=== PATIENT | male | born 1945 | race Caucasian/White ===

== ENCOUNTER → 2016-07-08 | Outpatient (CLI) | payer OTHER, BC | LOC: BHFA 09:30 | PROVIDERS: ATTEND Internal Medicine Cardiovascular Disease | DX: I25.10 Atherosclerotic heart disease of native coronary artery without angina pectoris (principal); R06.02 Shortness of breath | CPT/HCPCS: 78452; 93017; A9500; J2785 ==

== ENCOUNTER 2016-07-09 07:58 | Observation (INO) | payer OTHER, BC ==
--- NOTE | 2016-07-09 08:13 | CPEKG ---
Heart Rate: 102 RR Interval: 588 P-R Interval: 144 QRSD Interval: 86 QT Interval: 340 QTC Interval: 443 P [place]: 70 QRS [place]: 62 EKG Severity - OTHERWISE NORMAL ECG - EKG Impression: SINUS TACHYCARDIA EKG Impression: NON SPECIFIC ST/T WAVE CHANGES NOTED Electronically Signed By: Igor Trevino 12-Jul-2016 10:26:37
--- NOTE | 2016-07-09 08:18 | EDPHY ---
H & P Smoking Status: Former smoker Time Seen by Provider: 07/09/16 08:07 HPI/ROS: CHIEF COMPLAINT: Dyspnea, abnormal stress test HISTORY OF PRESENT ILLNESS: 70-year-old male presents to the emergency department with his by private vehicle complaining of on going dyspnea for last several months. The patient states that he has been short of breath since he broke 3 ribs from an accident a year ago. He states that he had a workup for this including most recently had a stress test yesterday with Dr. Warner Castellano and was told that this was abnormal. He presents today to the emergency department for catheterization. Patient denies pleuritic pain. He denies pain or swelling in his calves. He recently traveled to [place] in return 3 weeks ago. He is short of breath especially with activity. REVIEW OF SYSTEMS: Constitutional: No fever, no chills. Eyes: No double or blurry vision. ENT: No sore throat. Respiratory: Shortness of breath as above. No cough. Cardiac: No chest pain. Gastrointestinal: No abdominal pain, vomiting or diarrhea. Genitourinary: No dysuria. Musculoskeletal: No neck or back pain. Skin: No rashes. Neurological: No headache. (Beckie Pressley) Past Medical/Surgical History: Hypertension (Beckie Pressley) Social History: (Beckie Pressley) Physical Exam: General Appearance: Alert, no distress. 173/95, 90% on room air, heart rate 102 , afebrile. Eyes: Pupils equal and round. Extraocular motions are all intact. ENT: Mouth: Mucous membranes moist. Respiratory: No wheezing, rhonchi, or rales, lungs are clear to auscultation. Cardiovascular: Regular rate and rhythm. Gastrointestinal: Abdomen is soft and nontender, no masses, no rebound or guarding, bowel sounds normal. Neurological: Alert and oriented x 3, cranial nerves II through XII grossly intact Skin: Warm and dry, no rashes. Musculoskeletal: Nontender to palpate along the cervical, thoracic or lumbar spine. Neck is supple. Extremities: Full range of motion and no peripheral edema. Psychiatric: Patient is oriented X 3, there is no agitation. (Beckie Pressley) Constitutional: Initial Vital Signs Temperature (C) 37.1 C 07/09/16 07:59 Heart Rate 102 H 07/09/16 07:59 Respiratory Rate 18 07/09/16 07:59 Blood Pressure 173/95 H 07/09/16 07:59 O2 Sat (%) 90 L 07/09/16 07:59 O2 Delivery Mode Nasal Cannula O2 (L/minute) 2 Allergies/Adverse Reactions: No Known Allergies Allergy (Unverified 07/09/16 08:11) Home Medications: Medication Instructions Recorded Albuterol [Proventil Inhaler HFA 1 - 2 puffs IH Q4H PRN 07/09/16 (*)] Budesonide/Formoterol 160/4.5 2 puffs IH BID 07/09/16 [Symbicort 160-4.5 Mcg Inh (*)] Losartan Potassium [Cozaar] 100 mg PO DAILY 07/09/16 Simvastatin [Zocor] 40 mg PO DAILY 07/09/16 Medical Decision Making - Diagnostics EKG Interpretation: 12 lead EKG is interpreted in Trace master View by emergency department physician. It shows a sinus tachycardia with a rate of 102. (Patricia Briceno) Imaging: Patient declined chest x-ray since he had recent chest CT 2-3 weeks ago. (Beckie Pressley) ED Course/Re-evaluation: 70-year-old male presents to the emergency department for catheterization. The patient had abnormal stress test yesterday. Patient has no pain in his chest currently. Dr. Patricia Briceno has talked with the patient's boiler control technician, Dr. Warner Castellano. The patient will be sent to the sleep lab technician. (Beckie Pressley) Differential Diagnosis: Shortness of breath including but not limited to pulmonary infectious process, COPD, asthma, pulmonary embolus and congestive heart failure. (Beckie Pressley) Other Provider: I have evaluated and participated in the management of this patient. My co- signature indicates that I have reviewed this chart and that I agree with the findings and the plan of care as documented. 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 He is not currently experiencing chest pain. He is not short of breath, although this has been a recent complaint. I did a focused physical examination. He was mildly tachycardic without murmur, rub, or gallop. Lungs were clear to auscultation. Abdomen soft and nontender. Lower extremities without edema. No calf tenderness or swelling. CBC and chemistries were performed and I reviewed them. CO2 slightly low at 19 and blood sugar were mildly elevated, all else normal. He was taken from the emergency department to the cardiac catheterization lab. ( Patricia Briceno) - Data Points Laboratory Results: Laboratory Results 07/09/16 08:15 07/09/16 08:15 07/09/16 07/09/16 08:15 08:15 WBC 6.72 10^3/uL 10^3/uL (3.80-9.50) RBC 4.80 10^6/uL 10^6/uL (4.40-6.38) Hgb 15.2 g/dL g/dL (13.7-17.5) Hct 46.2 % % (40.0-51.0) MCV 96.3 fL fL (81.5-99.8) MCH 31.7 pg pg (27.9-34.1) MCHC 32.9 g/dL g/dL (32.4-36.7) RDW 13.3 % % (11.5-15.2) Plt Count 256 10^3/uL 10^3/uL (150-400) MPV 9.4 fL fL (8.7-11.7) Neut % (Auto) 53.0 % % (39.3-74.2) Lymph % (Auto) 32.7 % % (15.0-45.0) Coffey % (Auto) 8.9 % % (4.5-13.0) Eos % (Auto) 3.6 % % (0.6-7.6) Baso % (Auto) 1.2 % % (0.3-1.7) Nucleat RBC Rel Count 0.0 % % (0.0-0.2) Absolute Neuts (auto) 3.56 10^3/uL 10^3/uL (1.70-6.50) Absolute Lymphs (auto) 2.20 10^3/uL 10^3/uL (1.00-3.00) Absolute Monos (auto) 0.60 10^3/uL 10^3/uL (0.30-0.80) Absolute Eos (auto) 0.24 10^3/uL 10^3/uL (0.03-0.40) Absolute Basos (auto) 0.08 10^3/uL 10^3/uL (0.02-0.10) Absolute Nucleated RBC 0.00 10^3/uL 10^3/uL (0-0.01) Immature Gran % 0.6 % % (0.0-1.1) Immature Gran # 0.04 10^3/uL 10^3/uL (0.00-0.10) Sodium 142 mEq/L mEq/L (134-144) Potassium 4.8 mEq/L mEq/L (3.5-5.2) Chloride 108 mEq/L mEq/L (97-110) Carbon Dioxide 19 mEq/l L mEq/l (22-31) Anion Gap 15 mEq/L mEq/L (8-16) BUN 21 mg/dL mg/dL (7-23) Creatinine 1.1 mg/dL mg/dL (0.7-1.3) Estimated GFR > 60 Glucose 102 mg/dL H mg/dL (70-100) Calcium 9.6 mg/dL mg/dL (8.5-10.4) Medications Given: Discontinued Medications Amlodipine Besylate (Norvasc) 5 mg PO DAILY [facility] Stop: 01/05/17 09:59 Last Admin: 07/09/16 14:35 Dose: Not Given Aspirin Buffered (Aspirin Ec) 325 mg PO ONCALL ONE Stop: 07/09/16 08:42 Last Admin: 07/09/16 13:35 Dose: Not Given Diazepam (Valium) 5 mg PO ONCALL ONE Stop: 07/09/16 08:42 Last Admin: 07/09/16 13:36 Dose: Not Given Diphenhydramine HCl (Benadryl) 25 mg PO ONCALL ONE Stop: 07/09/16 08:42 Last Admin: 07/09/16 13:36 Dose: Not Given Departure - Departure Disposition: To OP Cath/Surgery Clinical Impression: History of abnormal stress test Dyspnea Qualifiers: Dyspnea type: dyspnea on exertion Qualified Code(s): R06.09 - Other forms of dyspnea Condition: Good
[2016-07-09 08:36] LABS: % IMMATURE GRANULYOCYTES 0.6 % (0.0-1.1); ABSOLUTE IMMATURE GRANULOCYTES 0.04 10^3/uL (0.00-0.10); ADD DIFF? NO; ADD MORPH? NO; ADD SCAN? NO; ATYPICAL LYMPHOCYTE FLAG 10 (0-99); FRAGMENT RBC FLAG 0 (0-99); HEMATOCRIT 46.2 % (40.0-51.0); HEMOGLOBIN 15.2 g/dL (13.7-17.5); LEFT SHIFT FLG 0 (0-99); LIPEMIA HEMOLYSIS FLAG 80 (0-99); MEAN CELL HEMOGLOBIN 31.7 pg (27.9-34.1); MEAN CELL HEMOGLOBIN CONCENTR. 32.9 g/dL (32.4-36.7); MEAN CELL VOLUME 96.3 fL (81.5-99.8); MEAN PLATELET VOLUME 9.4 fL (8.7-11.7); PLATELET CLUMPS FLAG 0 (0-99); PLATELET COUNT 256 10^3/uL (150-400); RED CELL DISTRIBUTION WIDTH 13.3 % (11.5-15.2)
[2016-07-09] MEDS ORDERED: DIAZEPAM 5 MG TAB PO ONE ×2 (08:41)
[2016-07-09] MEDS ORDERED: ACETAMINOPHEN 325 MG TAB PO PRN ×2 (08:41→09:22)
[2016-07-09] MEDS ORDERED: ASPIRIN EC 325 MG TAB PO ONE ×2 (08:41)
[2016-07-09] MEDS ORDERED: NITROGLYCERIN 0.4 MG BTL SL PRN ×2 (08:41→09:22)
[2016-07-09] MEDS ORDERED: diphenhydrAMINE 25 MG CAP PO ONE ×2 (08:41)
[2016-07-09] MEDS ORDERED: TEMAZEPAM 15 MG CAP PO PRN ×2 (08:41→09:22)
[2016-07-09] MEDS ORDERED: NS 1,000 ML IV SCH ×3 (08:45→10:00)
[2016-07-09 08:46] LABS: ANION GAP 15 mEq/L (8-16); CALCIUM 9.6 mg/dL (8.5-10.4); CARBON DIOXIDE 19 mEq/l (22-31); CHLORIDE 108 mEq/L (97-110); CREATININE 1.1 mg/dL (0.7-1.3); GLOMERULAR FILTRATION RATE > 60; GLUCOSE 102 mg/dL (70-100); POTASSIUM 4.8 mEq/L (3.5-5.2); SODIUM 142 mEq/L (134-144)
[2016-07-09] MEDS ORDERED: fentaNYL 100 MCG/2 ML INJ ONE ×2 (08:48→09:31)
[2016-07-09] MEDS ORDERED: LIDOCAINE 1% 30 ML SDV ONE (08:48)
[2016-07-09] MEDS ORDERED: IOPAMIDOL (ISOVUE-370) 150 ML BTL IV ONE (08:49)
[2016-07-09] MEDS ORDERED: MIDAZOLAM 2 MG/2 ML VIAL ONE ×3 (08:49→09:36)
[2016-07-09] MEDS ORDERED: ONDANSETRON 4 MG/2 ML VIAL IVP PRN (09:56)
[2016-07-09] MEDS ORDERED: ATROPINE SULFATE 1 MG/10 ML SYR IVP PRN (09:56)
[2016-07-09] MEDS ORDERED: ONDANSETRON DISINTEGRATING 4 MG TAB PO PRN (09:56)
--- NOTE | 2016-07-09 10:05 | PDDXCAT ---
Diagnostic Cath Note - . Date: 07/09/16 Family Law Attorney: Gray Indication: High-risk criteria on noninvasive testing (choose option below), other High-risk criteria on non-invasive testing: high-risk treadmill score (score<=- 11) - Procedure Access: right groin Procedure: left heart catheterization, coronary angiography, left ventriculogram - Materials Left Heart Cath size: 6F Left Heart Cath materials: standard multipack (JL4, JR4, pigtail) - Findings-Left Heart Catheterization LM: 1. short normal LAD: 1. intimal plaquing LCX: 1.co -dominant mild plaquing RCA: 1. co-dominant mild plaque EDP: 25 mmhg LVEF: 65% Wall motion: no rwma Complications: none Estimated blood loss: <50ml Closure method: Angioseal Assessment: 1. mild cad. 2. normal lvef 65%. 3. htn.. Plan: 1. add norvasc 5 mg qd to lisinopril Patient Problems: Problems Problem Status Onset Chest pain Acute Dyspnea Acute - ICD10 Problem Qualifiers (1) Chest pain Qualifiers: Chest pain type: C Ischemic chest pain type: I
[2016-07-09 11:35] VITALS: BP 140/93; PULSE 89; RESP 22; TEMP 98.4; O2SAT 89
[2016-07-09] MEDS: amLODIPine BESYLATE 5 MG TAB PO SCH ×2 (13:37→14:35)
== END 2016-07-09 14:30 | disposition home or self-care (01) ==
LOC: FCATH 09:00 → F2W 09:57
PROVIDERS: ADMIT Internal Medicine Cardiovascular Disease; ATTEND Internal Medicine Cardiovascular Disease
PROC: B2111ZZ Fluoroscopy of Multiple Coronary Arteries using Low Osmolar Contrast (ICD-10-PCS; principal; 2016-07-09 10:15)
PROC: B2131ZZ Fluoroscopy of Multiple Coronary Artery Bypass Grafts using Low Osmolar Contrast (ICD-10-PCS; principal; 2016-07-09 10:15)
PROC: 4A023N7 Measurement of Cardiac Sampling and Pressure, Left Heart, Percutaneous Approach (ICD-10-PCS; principal; 2016-07-09 10:15)
DX: R94.39 Abnormal result of other cardiovascular function study (principal); R06.00 Dyspnea, unspecified; R07.9 Chest pain, unspecified; I10 Essential (primary) hypertension
CPT/HCPCS: 93005; 93458; 93567; C1760; J1644; J2250; J3010; Q9967

== ENCOUNTER 2017-07-22 08:26 | Observation (INO) | payer OTHER ==
--- NOTE | 2017-07-22 08:35 | CPEKG ---
Heart Rate: 110 RR Interval: 545 P-R Interval: 188 QRSD Interval: 86 QT Interval: 328 QTC Interval: 444 P [place]: 66 QRS [place]: 38 T Wave [place]: 162 EKG Severity - ABNORMAL ECG - EKG Impression: SINUS TACHYCARDIA EKG Impression: NONSPECIFIC REPOL ABNORMALITY, DIFFUSE LEADS Electronically Signed By: Nina Garcia 22-Jul-2017 14:05:39
--- NOTE | 2017-07-22 08:50 | EDPHY ---
HPI/HX/ROS/PE/MDM Narrative: CHIEF COMPLAINT: Chest pain HISTORY OF PRESENT ILLNESS: The patient is a 71 y/o male with a history of COPD complaining of mid-chest tightness since 05:30 this morning, 3 hours ago. This pain did not wake him up today as he was already awake. Associated SOB, no diaphoresis or radiation, no nausea. Pain was a 5/10 and is currently a 3/10. Denies taking Aspirin or pain medication for symptoms. Denies loss of consciousness, shortness of breath, or radiating pain. This pain is similar to prior COPD exacerbation episodes, but typically his COPD exacerbations do not last this long. His COPD has been stable recently. In 2017, Dr. Warner Castellano, automobile racer, preformed a normal heart catheterization. Denies history of diabetes or pedal edema. No fever, chills, palpitations, vomiting, diarrhea, urinary complaints, headache , lightheadedness. REVIEW OF SYSTEMS: Aside from elements discussed in the HPI, a comprehensive 10-point review of systems was reviewed and is negative. 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 HR 111 GENERAL: Well-developed, well-nourished, resting comfortably in no respiratory distress. HEENT: Atraumatic. Eyes: No icterus, no injection. Mouth: moist mucous membranes. No erythema or lesions. Neck: supple with no adenopathy. LUNGS: Pursed lip breathing, clear to auscultation bilaterally, no wheezes, rhonchi or rales. CARDIAC: Tachycardic, no rubs, murmurs or gallops. ABDOMEN: Soft, nontender, nondistended, bowel sounds normal. BACK: No CVA tenderness. EXTREMITIES: No trauma. No edema. Range of motion is normal throughout. NEURO: Alert and oriented, grossly nonfocal. SKIN: Warm and dry, no rash. PSYCHIATRIC: Normal mentation, no agitation. Portions of this note were transcribed by a center medical and lab director. I personally performed a history, physical exam, medical decision making, and confirmed accuracy of information the transcribed note. ED Course: The patient is a 71 y/o male with a history of COPD presenting with mid-chest tightness since 05:30 this morning, 3 hours ago. On exam the patient is tachycardic with a rate of 112 and is performing pursed-lip breathing. Labs, EKG , and chest x-ray ordered. 324mg PO Aspirin and 1 nitroglycerin ordered. 0833: 12-LEAD EKG: Please see the full report in Trace Master. My interpretation: Sinus tachycardia with a rate of 110, diffuse ST depressions V2- 5, nonspecific repolarization abnormality 0924: Consulted with Dr. Loan Kennedy, automobile racer, regarding this patient. Patient's troponin is negative today. 0930: Consulted with hospitalist service, Dr. Burk accepts admission of this patient. 0945: Reassessed patient. Patient had declined nitroglycerin. He reports that his chest tightness is better. He denies pain but reports that was tightness only. Patient believes the discomfort is secondary to COPD exacerbation. He was placed on O2 2 L. We discussed the EKG changes. These are new in comparison to patient's EKG of a year ago. I discussed admission to the hospital and patient is in agreement. 1022: Patient has mild bronchitis and cardiomegaly. MDM: After history and physical examination, the differential for chest pain was considered, including but not limited to, myocardial ischemia, acute coronary syndrome, pulmonary embolus, chest wall pain, pleural inflammation, COPD, gastrointestinal causes and pulmonary infectious causes. - Data Points Imaging Results: Imaging Impressions Chest X-Ray 07/22/17 08:49 Impression: 1. Mild bronchitis. 2. Mild cardiomegaly. 3. Other chronic findings as above. Imaging: I viewed and interpreted images myself Laboratory Results: Laboratory Results 07/22/17 08:45 07/22/17 08:45 07/22/17 07/22/17 08:45 08:45 WBC 12.88 10^3/uL H 10^3/uL (3.80-9.50) RBC 4.70 10^6/uL 10^6/uL (4.40-6.38) Hgb 15.4 g/dL g/dL (13.7-17.5) Hct 46.4 % % (40.0-51.0) MCV 98.7 fL fL (81.5-99.8) MCH 32.8 pg pg (27.9-34.1) MCHC 33.2 g/dL g/dL (32.4-36.7) RDW 13.2 % % (11.5-15.2) Plt Count 220 10^3/uL 10^3/uL (150-400) MPV 9.5 fL fL (8.7-11.7) Neut % (Auto) 73.6 % % (39.3-74.2) Lymph % (Auto) 14.9 % L % (15.0-45.0) Gregory % (Auto) 7.7 % % (4.5-13.0) Eos % (Auto) 2.4 % % (0.6-7.6) Baso % (Auto) 0.6 % % (0.3-1.7) Nucleat RBC Rel Count 0.0 % % (0.0-0.2) Absolute Neuts (auto) 9.48 10^3/uL H 10^3/uL (1.70-6.50) Absolute Lymphs (auto) 1.92 10^3/uL 10^3/uL (1.00-3.00) Absolute Monos (auto) 0.99 10^3/uL H 10^3/uL (0.30-0.80) Absolute Eos (auto) 0.31 10^3/uL 10^3/uL (0.03-0.40) Absolute Basos (auto) 0.08 10^3/uL 10^3/uL (0.02-0.10) Absolute Nucleated RBC 0.00 10^3/uL 10^3/uL (0-0.01) Immature Gran % 0.8 % % (0.0-1.1) Immature Gran # 0.10 10^3/uL 10^3/uL (0.00-0.10) Sodium 141 mEq/L mEq/L (135-145) Potassium 4.8 mEq/L mEq/L (3.5-5.2) Chloride 107 mEq/L mEq/L (97-110) Carbon Dioxide 21 mEq/l L mEq/l (22-31) Anion Gap 13 mEq/L mEq/L (8-16) BUN 16 mg/dL mg/dL (7-23) Creatinine 0.9 mg/dL mg/dL (0.7-1.3) Estimated GFR > 60 Glucose 106 mg/dL H mg/dL (70-100) Calcium 9.3 mg/dL mg/dL (8.5-10.4) Troponin I < 0.012 ng/mL ng/mL (0.000-0.034) Medications Given: Discontinued Medications Aspirin (Aspirin) 324 mg PO EDNOW ONE Stop: 07/22/17 09:01 Last Admin: 07/22/17 09:09 Dose: 324 mg General Time Seen by Provider: 07/22/17 08:45 Initial Vital Signs: Initial Vital Signs Temperature (C) 36.6 C 07/22/17 08:33 Heart Rate 111 H 07/22/17 08:33 Respiratory Rate 17 07/22/17 08:33 Blood Pressure 185/103 H 07/22/17 08:33 O2 Sat (%) 94 07/22/17 08:33 O2 Delivery Mode Room Air Allergies/Adverse Reactions: No Known Allergies Allergy (Unverified 07/09/16 08:11) Home Medications: Medication Instructions Recorded Albuterol [Proventil Inhaler HFA 1 - 2 puffs IH Q4H PRN 07/09/16 (*)] Budesonide/Formoterol 160/4.5 2 puffs IH BID 07/09/16 [Symbicort 160-4.5 Mcg Inh (*)] Losartan Potassium [Cozaar] 100 mg PO DAILY 07/09/16 Simvastatin [Zocor] 40 mg PO DAILY 07/09/16 Aspirin [Aspirin 81mg (*)] 81 mg PO DAILY tab.chew 07/23/17 Metoprolol Succinate Xr [Toprol Xl 50 mg PO DAILY #30 tab 07/23/17 50 mg (*)] Departure - Departure Disposition: [facility] Acute Clinical Impression: Abnormal EKG, Bronchitis, Tachycardia Hypertension Qualifiers: Hypertension type: unspecified Qualified Code(s): I10 - Essential (primary) hypertension Condition: Fair Report Scribed for: Nina Garcia Report Scribed by: Lety Moreno Date of Report: 07/22/17 Time of Report: 08:50
[2017-07-22] MEDS ORDERED: ASPIRIN 81 MG CHEWABLE TAB PO ONE (09:00)
[2017-07-22] MEDS ORDERED: NITROGLYCERIN 0.4 MG BTL SL PRN (09:00)
[2017-07-22 09:04] LABS: PLATELET COUNT 220 10^3/uL (150-400)
[2017-07-22] MEDS ORDERED: NS 500 ML IV ONE (09:47)
[2017-07-22] MEDS ORDERED: ALBUTEROL 60 PUFFS/8 GM MDI IH PRN (11:31)
[2017-07-22] MEDS ORDERED: NON-FORMULARY NEW DRUG (Simvastatin [Zocor] 40 MG) PO SCH (11:45)
[2017-07-22] MEDS ORDERED: NON-FORMULARY NEW DRUG (Losartan Potassium [Cozaar] 100 MG) PO SCH (11:45)
[2017-07-22] MEDS: METOPROLOL TARTRATE 25 MG TAB PO SCH ×2 (12:17→20:46)
--- NOTE | 2017-07-22 12:38 | GCON ---
[f rep st] CONSULTATION CARDIOLOGY CONSULTATION DATE OF CONSULTATION: 07/22/2017 PRIMARY BEHAVIOR SUPPORT SPECIALIST: Warner Castellano MD CHIEF COMPLAINT: Chest pain. HISTORY OF PRESENT ILLNESS: We were asked by Dr. Garcia and Dr. 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 He has COPD, hypertension, and dyslip idemia. He was awake early this morning dealing with his son's dog. He started to have central chest pressur e, which he describes as a worsening of his baseline central chest pressure. This did not radiate. There was no associated dyspnea, nausea, or diaphoresis. He did not have presyncope, syncope, or pal pitations. He does not have problems with lower extremity edema. He does not exercise regularly, but when he walks a flight of stairs or walks faster on level ground, he does not notice a worsening of what he describes as his baseline central chest discomfort. He th inks he may be having a COPD exacerbation. In the emergency department, his blood pressure was 185/103. He was given 1 nitroglycerin with some improvement in his discomfort. His EKG showed slight worsening of diffuse ST depressions compared to EKG a year ago. Upon my evaluation, he reports that he is back to baseline. REVIEW OF SYSTEMS: A full 10-point review of systems is performed and is negative except that which is outlined in the history of present illness. ALLERGIES: No known drug allergies. PAST MEDICAL HISTORY: 1. COPD. 2. Coronary artery calcification seen on chest CT. 3. Hypertension. 4. Dyslipidemia. 5. History of back surgery. OUTPATIENT MEDICATIONS: Losartan 100 mg daily, simvastatin 40 mg daily, Symbicort, and albuterol. SOCIAL HISTORY: The patient stopped smoking a pipe about 3 years ago. He did smoke a pipe for about 30 years. He is . 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 FAMILY HISTORY: His brother of what sounds like ischemic cardiomyopathy in his 60s. PHYSICAL EXAMINATION: VITAL SIGNS: Blood pressure currently 160/82, heart rate 81, oxygen saturatio n 98% in room air. He is afebrile. GENERAL: Well-appearing older male in no acute distress. HEENT : Sclerae clear and free of jaundice. Mucous membranes are moist. Normocephalic, atraumatic. CARD IOVASCULAR: JVP less than 10. Carotid's equal and 2+ bilaterally without bruit. Regular rate and r hythm without murmur, rub, or gallop. Slightly tachycardic. LUNGS: No wheezes, rhonchi, or rales. Slightly decreased throughout all lung quintero. ABDOMEN: Soft, nontender, nondistended without brui ts, masses, or hepatosplenomegaly. EXTREMITIES: Warm and well perfused without cyanosis, clubbing, or edema. NEUROLOGIC: Alert and oriented x3 without gross focal neurologic deficits. Appropriate mood and aff ect. LABORATORY DATA: White count 12.88, hematocrit 46.4, and platelets 220. Sodium 141, potassium 4.8, chloride 107, bicarb 21, BUN 16, creatinine 0.9, glucose 106. Troponin negative x1. TSH was normal; the last TSH we have was in 2010, and that was normal. Last LDL we have was in 2010, and this was 1 01. EKG reviewed by me shows sinus tachycardia at 110 beats per minute with diffuse ST depression. The S T depression is slightly worse than 2017, but was present in 2017. Echocardiogram is pending. Chest x-ray reviewed by me: Mild bronchitis and mild cardiomegaly. Coronary angiogram, June 2016: [id number] diffuse disease without flow limitation. Ejection f raction 65%. Nuclear stress test in our office, June 2016 (prior to his cath), showed a moderate territory of inf erior ischemia. ASSESSMENT AND PLAN: A 71-year-old male with [id number] coronary disease on the basis of celena lara a year ago, hypertension, and chronic obstructive pulmonary disease. He is now admitted with c hest pain, hypertension, and slight worsening of his baseline EKG abnormalities. 1. Chest pain: This could be angina versus chronic obstructive pulmonary disease exacerbation. It is likely that his significant hypertension contributed to subendocardial ischemia. I do not think rashmi montes de oca is having an acute coronary syndrome and does not warrant urgent cardiac catheterization. Would cy cherie troponins and repeat EKG. I have added metoprolol to his regimen for improved blood pressure con trol. I do not think this will make his chronic obstructive pulmonary disease worse. Continue aspir in and statin. I would not perform nuclear stress testing as he has previously had a falsely positiv e nuclear stress test. Review echocardiogram once performed. 2. Hypertension: It is likely that accelerated hypertension is contributing to his symptom complex. I have added beta blockers. It sounds like he had lower extremity edema related to amlodipine in t he past. Could add diuretic if needed. Continue losartan. 3. Chronic obstructive pulmonary disease: He thinks he may be having a chronic obstructive pulmonar y disease exacerbation. He is not wheezy. He is on room air. He has no identifiable chronic obstru ctive pulmonary disease triggers. Will follow. 4. Elevated glucose: Will check a hemoglobin A1c. Thank you for allowing us to participate in this patient's care. Will follow with you. /[id number]/MODL
--- NOTE | 2017-07-22 13:18 | PDGENHP ---
History and Physical History and Physical: CC: Chest discomfort at rest HISTORY: This man who has no history of heart or vascular disease, was awake this morning around 7 or 7:00 when he started having a tight sensation across his anterior chest. This had persisted until he came into the emergency room and was improved while in the ER here. Is unclear to me exactly how long the symptoms lasted but he was 1st assessed in the ER at 8:30 a.m. This morning. He did not have dyspnea, diaphoresis, nausea, pleuritic pain, pain in or swelling in his legs, fever symptoms. He has not had any recent symptoms of illness. He has not had any recent decrease in his exertional capacity or discomfort with exertion. He has been sleeping well at night. He has never had an episode of chest discomfort like this 1. He does have known COPD and is on chronic stable doses of albuterol and Symbicort, without any change in his symptoms or his use of medications recently. He used to be a pipe smoker but no longer uses any tobacco. He does have treated hypertension and treated hypercholesterolemia but is not diabetic. He has 1 brother who had ischemic cardiomyopathy and of complications of heart failure from he describes to me. There is also an uncle who apparently had some type of heart disease but is not clear to me the details of that. Notably the patient did have a coronary angiography in June 2016; I read the report from that study and what is described is mild plaque in multiple vessels without any description of any degree of stenosis. 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 He is enjoying assisted very much in traveling with his He plays golf and has moderate physical activity overall MEDICATIONS: The patients list has been reconciled by our clinical pharmacist in the EMR. I have reviewed the list and ordered appropriate medicines. PHYSICAL EXAMINATION: Vital Signs: He has been tachycardic since arrival here, in the 110-115 range and has had hypertension in the moderate range since arrival as well. He says he did take his blood pressure medicine this morning. Respirations are normal in number and he has no fever Roll Inspector: Sinus tachycardia Examination: General: alert, oriented, good mentation, mildly anxious Skin: warm, dry, good color, no rash HEENT: normal Neck: no mass or jvd Resps: relaxed Lungs: clear breath sounds Heart: Tachycardic but regular, no murmur Abdomen: soft, nondistended, nontender, +BS, no mass Upper Extremities: normal Lower Extremities: no edema, warm No Bleeding or bruising Neurologic: normal speech/language, normal clinical education consultant, no focal weakness IV site: looks normal LABORATORY DATA: 1st troponin normal CBC remarkable for an elevated white blood cell count [id number] with 9000 neutrophils Glucose of 106, CO2 of 21 on chemistry RADIOLOGY STUDIES: Chest x-ray two view done in the ER today and I reviewed the images, my interpretation: There is evidence of mild hyperexpansion, no pulmonary edema, no increase in cardiac silhouette, no vascular abnormalities, no infiltrates or effusions. Radiologist has read that there is some evidence of bronchitis, this would be certainly mild I think 12 LEAD EKG: Sinus tachycardia with some anterior lateral ST segment depressions suggesting possible ischemia. I reviewed the EKG from 2017. On that EKG there was a very subtle nonspecific change of ST segment depression in the same leads, certainly not at all to the agree seen today. ASSESSMENT: 1 chest pain at rest with 1st normal troponin but with some new abnormality of EKG since 1 year ago * The symptom is currently resolved 2 absence of arrhythmia or heart failure 3 persisting sinus tachycardia 4 known mild coronary disease seen on angiography 1 year ago 5 moderate hypertension with a history of chronic hypertension, reports that he did take his losartan at home this morning before coming in 6 vascular risk factors include family history with a brother who of ischemic heart disease, former smoker with known emphysema, hypertension on therapy and hyperlipidemia on therapy 7 stable COPD at this time 8 former tobacco user with a pipe, currently not using any tobacco Overall he does not appear to have any injury at this time, however this story is highly concerning with multiple risk factors, typical angina type symptom, and some EKG abnormality that is new from last year and looks ischemic. Is not clear to me at this point why he has the persisting tachycardia and hypertension today when he normally has no trouble with the those on his current blood pressure medicine at home. He attributes this at least to some degree to a white coat syndrome, and he certainly does appear more anxious than I am used to seeing him. Is also not entirely clear to me why he has an elevated white blood cell count. I do not see anything that appears overtly infectious. PLANS: -I reviewed his case in detail this morning with Dr. Loan Kennedy -certainly want see at least 1 more troponin and we have ordered an echocardiogram which we will review -continue child monitor here on the PCU -as he had had a normal nuclear stress test a year ago for his angiograms Dr. Kennedy does not feel that this test would be appropriate. Will want to see repeat troponins and an echocardiogram before determining on further assessment for his coronaries. I have reviewed the patient's case in detail with Dr. Loan Kennedy I have reviewed the patient's past medical records as part of this assessment, including previous hospital admission records, old EKG, old stress test report and angiogram report
[2017-07-22] MEDS: BUDESONIDE/FORMOTEROL 160/4.5 60 PUFFS/MDI IH SCH ×2 (13:48→21:34)
--- NOTE | 2017-07-22 14:16 | ECHO ---
[email or web address] [address] [address] Main: [phone] Fax: Transthoracic Echocardiogram Name: PAM LE MR#: [id number] Study Date: 07/22/2017 Study Time: 12:55 PM Date of : 1945 Age: 71 year(s) Height: 180.3 cm (71 in.) Weight: 88.45 kg (195 lb.) BSA: 2.09 m2 Gender: Male Examination: Echo Indication: Chest Pain, ecg changes Image Quality: Technically Difficult Contrast: Requested by: Loan Kennedy BP: 156 mmHg/118 mmHg Heart Rate: Rhythm: Indication: Chest Pain, ecg changes Procedure Staff Clinical Practitioner: Ellie Montalvo [facility] Reading Physician: Loan Kennedy MD Requesting Provider: Francisco Burk Conclusions: Normal size left ventricle. Mild concentric LV hypertrophy. Normal global systolic LV function. EF is 58 %. No regional wall motion abnormality. Grade 1 diastolic dysfunction (abnormal relaxation). Mildly dilated right ventricle. Normal RV function. No significant valvular disease. Unable to assess PA systolic pressure. No prior echo Measurements: Chambers Valvular Assessment AV/MV Valvular Assessment TV/PV Normal Normal Normal Name Value Range Name Value Range Name Value Range Ao Sandrita (2D): 3.3 cm (1.4 cm-2.6 AV meanP mmHg ( - ) PV Vmax: 0.79 m/s (0.6 m/s-0.9 cm) MANJIT (VTI): 1.8 cm ( - ) m/s) IVSd (2D): 1.1 cm (0.6 cm-1.1 MV E Vmax: 0.66 m/s ( - ) PV PGmax: 2 mmHg ( - ) cm) MV A Vmax: 0.99 m/s ( - ) LVDd (2D): 4.7 cm (4.2 cm-5.9 MV E/A: 0.67 ( - ) cm) MV PHT: 0.042 s ( - ) LVDs (2D): 3.5 cm (2.1 cm-4 cm) MVA (PHT): 5.2 s ( - ) LVPWd (2D): 1.1 cm (0.6 cm-1 cm) LVOTd 2.1 cm 2.1 cm mm LVEF (BP): 58 % (>=55 %) RVDd(2D): 2.8 cm (1.9 cm-3.8 cmmm) Continued Measurements: Patient: PAM LE Study Date: 07/22/2017 Page 1 of 2 12:55 PM Chambers Valvular Assessment AV/MV Valvular Assessment TV/PV Name Value Name Value Name Value LADs: 3.4 cm MV DecTime: 127 m/s CVP (est.): 5 mmHg LADs Lon.5 cm MV E' Septal: 0.09 m/s LA Area: 17.5 cm2 MV E/E' Septal: 7.00 LA Volume: 48 ml MV E/E' Lateral: 7.10 LA Volume Index: 23.0 ml/m2 RA Area: 16.0 cm2 Additional Vessels Name Value Ao Ascendin.2 cm Inferior Vena Cava: 1.8 cm Findings: Left Ventricle: Normal size left ventricle. Mild concentric LV hypertrophy. Normal global systolic LV function. EF is 58 %. No regional wall motion abnormality. Grade 1 diastolic dysfunction (abnormal relaxation). Right Ventricle: Mildly dilated right ventricle. Normal RV function. Left Atrium: The left atrium is normal in size. Right Atrium: The right atrium is normal in size. Mitral Valve: The mitral valve is normal in appearance and function. Trivial mitral valve regurgitation. No mitral stenosis is present. Aortic Valve: The aortic valve is normal in appearance and function. There is no aortic valve regurgitation. No aortic valve stenosis is present. Tricuspid Valve: The tricuspid valve is normal in appearance and function. There is no significant tricuspid valve regurgitation. Pulmonic Valve: The pulmonic valve is normal in appearance and function. There is no pulmonic regurgitation seen. Aorta: The aorta is normal. Normal size aortic root measuring 3.3 cm. Normal size ascending aorta measuring 3.2 cm. IVC: The IVC is normal sized. Pericardium: No pericardial effusion. No pleural effusion. Exam Comments: Limited echo windows. (No Signature Object) Patient: PAM LE Study Date: 07/22/2017 Page 2 of 2 12:55 PM D:_[id number]
--- NOTE | 2017-07-22 18:43 | CPEKG ---
Heart Rate: 99 RR Interval: 606 P-R Interval: 164 QRSD Interval: 84 QT Interval: 336 QTC Interval: 432 P [place]: 71 QRS [place]: 39 T Wave [place]: 90 EKG Severity - ABNORMAL ECG - EKG Impression: SINUS RHYTHM EKG Impression: NONSPECIFIC T ABNORMALITIES, ANT-LAT LEADS Electronically Signed By: Jim Lewis 24-Jul-2017 06:14:42
[2017-07-22] MEDS: LEVALBUTEROL INHALER 200 PUFFS/15 GM MDI IH SCH (23:17)
--- NOTE | 2017-07-23 06:26 | CPEKG ---
Heart Rate: 97 RR Interval: 619 P-R Interval: 164 QRSD Interval: 88 QT Interval: 364 QTC Interval: 463 P [place]: 69 QRS [place]: 44 T Wave [place]: 73 EKG Severity - NORMAL ECG - EKG Impression: SINUS RHYTHM Electronically Signed By: Alicia Bates 23-Jul-2017 07:51:21
[2017-07-23] MEDS: BUDESONIDE/FORMOTEROL 160/4.5 60 PUFFS/MDI IH SCH (08:11)
[2017-07-23] MEDS: LEVALBUTEROL INHALER 200 PUFFS/15 GM MDI IH SCH (08:11)
[2017-07-23 08:45] VITALS: BP 157/97
[2017-07-23] MEDS: METOPROLOL TARTRATE 25 MG TAB PO SCH (08:45)
[2017-07-23] MEDS ORDERED: LOSARTAN POTASSIUM 50 MG TAB PO SCH (09:00)
[2017-07-23] MEDS ORDERED: ATORVASTATIN CALCIUM 20 MG TAB PO SCH (09:00)
[2017-07-23] MEDS ORDERED: ASPIRIN 81 MG CHEWABLE TAB PO SCH (09:00)
--- NOTE | 2017-07-23 09:13 | PDCARPN ---
Cardiology Progress Note Assessment/Plan: Assessment/plan: 71-year-old male with non flow-limiting coronary disease on the basis of coronary angiogram in June 2016, COPD, hypertension, dyslipidemia. He was admitted through the ER with chest pressure and slight worsening of his baseline ST depression. Serial troponins have been negative. He is currently chest pain free. Blood pressure is quite a bit better with the addition of beta-bhavana therapy. 1. Chest discomfort/coronary disease/abnormal EKG: No evidence of acute coronary syndrome based on negative troponins. He is asymptomatic now. It is likely that his significant hypertension upon admission was contributing to subendocardial ischemia and chest discomfort. Continue beta-blockers, angiotensin receptor bhavana, statin. Aspirin has been added. No need for stress testing or coronary angiogram at this time. 2. Hypertension: Improved with the addition of metoprolol. Can switch to long- acting Toprol. Possible beta-bhavana side effects were reviewed. 3. Dyslipidemia: Continue statin. 4. COPD: This appears stable. No wheezes on exam. 5. Elevated glucose: Hemoglobin A1c is pending and will need outpatient follow- up. He appears stable for discharge from a cardiac standpoint. Follow up with Dr. Wraner Castellano and his primary care doctor, Dr. Christopher Evans. 07/23/17 09:13 Subjective: Dr. 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 His chest pressure is completely gone. No significant dyspnea. Reviewed/Discussed With: family Objective: Vital Signs (8 Hrs) Temp Pulse Resp BP Pulse Ox 07/23/17 08:42 36.9 C 104 H 16 157/97 H 91 L 07/23/17 08:10 104 H 18 92 07/23/17 04:00 36.9 C 86 14 148/95 H 92 Intake/Output (24 Hrs) 07/22/17 07/23/17 07/24/17 05:59 05:59 05:59 Intake Total 700 Balance 700 Intake: Oral (ml) 700 Other: Weight 94.5 kg Intake Quantity Yes Sufficient Number of Voids Toilet 2 No acute distress. JVP less than 10. Regular rate and rhythm without murmur or gallop Decreased breath sounds throughout all lung quintero without wheezes rhonchi or rales No lower extremity edema Result Diagrams: 07/22/17 08:45 07/22/17 08:45 Cardiac Labs: Cardiac Lab Results (72 Hrs) 07/23/17 07/22/17 07:38 11:50 Troponin I < 0.012 < 0.012 EKG: Serial tracings reviewed: Sinus rhythm with diffuse mild ST depression. Telemetry: Normal sinus rhythm with occasional PVCs Echocardiogram: Reviewed: Normal LV systolic function without regional wall motion abnormality. ICD10 Worksheet Patient Problems: Problems Problem Status Onset Abnormal EKG Acute Bronchitis Acute Chest pain Acute Dyspnea Acute
--- NOTE | 2017-07-23 11:21 | HOSPPROG ---
Hospitalist Progress Note Assessment/Plan: 71 yo M w cp see dc summary Subjective: ready for dc Objective: Vital Signs Temp Pulse Resp BP Pulse Ox 36.9 C 104 H 16 157/97 H 91 L 07/23/17 08:42 07/23/17 08:42 07/23/17 08:42 07/23/17 08:42 07/23/17 08:42 07/22/17 07/23/17 07/24/17 05:59 05:59 05:59 Intake Total 700 Balance 700 - Physical Exam Constitutional: no apparent distress, appears nourished Eyes: PERRL, anicteric sclera Ears, Nose, Mouth, Throat: moist mucous membranes, hearing normal Cardiovascular: regular rate and rhythym, no murmur, rub, or gallop Respiratory: no respiratory distress, no rales or rhonchi, clear to auscultation Gastrointestinal: normoactive bowel sounds, soft, non-tender abdomen Genitourinary: no bladder fullness, No juares in urethra Skin: warm, normal color Musculoskeletal: full muscle strength Neurologic: AAOx3 ICD10 Worksheet Patient Problems: Problems Problem Status Onset Abnormal EKG Acute Bronchitis Acute Chest pain Acute Dyspnea Acute
--- NOTE | 2017-07-23 17:03 | GDS ---
[f rep st] DISCHARGE SUMMARY DISCHARGE DIAGNOSES: 1. Chest pressure. 2. Undertreated hypertension. 3. Known odk-jzbg-dtkvvdqe coronary disease. HOSPITAL COURSE: The patient was admitted. He had serial negative troponins and a nonischemic EKG. He was seen in consultation by Dr. Loan Kennedy. He had an echocardiogram that was relatively unremar kable. He did have diastolic dysfunction. He was started on metoprolol, with improvement in his hea rt rate and blood pressure. He is discharged home with outpatient followup and new prescriptions for Toprol-XL 50. /[id number]/MODL
[2017-07-24] MEDS ORDERED: METOPROLOL SUCCINATE XR 50 MG TAB PO SCH (09:00)
== END 2017-07-23 11:42 | disposition home or self-care (01) ==
LOC: F2W 11:02
PROVIDERS: ADMIT Internal Medicine; ATTEND Internal Medicine
DX: R07.89 Other chest pain (principal); I10 Essential (primary) hypertension; I25.10 Atherosclerotic heart disease of native coronary artery without angina pectoris; R00.0 Tachycardia, unspecified; J44.9 Chronic obstructive pulmonary disease, unspecified; E78.00 Pure hypercholesterolemia, unspecified; Z87.891 Personal history of nicotine dependence
CPT/HCPCS: 71046; 93005; 93306; G0378

== ENCOUNTER 2018-01-20 20:36 | Observation (INO) | payer OTHER ==
[2018-01-20] MEDS ORDERED: LET GEL TOPICAL 1 EA SYR TP ONE (21:00)
[2018-01-20 21:12] LABS: PLATELET COUNT 250 10^3/uL (150-400)
--- NOTE | 2018-01-20 21:18 | CPEKG ---
Test Reason : OPEN Blood Pressure : / mmHG Vent. Rate : 092 BPM Atrial Rate : 092 BPM P-R Int : 164 ms QRS Dur : 092 ms QT Int : 394 ms P-R-T Axes : 070 020 063 degrees QTc Int : 488 ms Sinus rhythm Borderline prolonged QT interval Confirmed by Garo Monroe ([id number]) on 01/20/2018 9:18:28 PM Referred By: Confirmed By:Garo Monroe
[2018-01-20] MEDS ORDERED: ACETAMINOPHEN 325 MG TAB PO PRN (21:43)
[2018-01-20] MEDS ORDERED: ONDANSETRON 4 MG/2 ML VIAL IVP PRN ×2 (21:43→22:08)
[2018-01-20] MEDS ORDERED: ONDANSETRON DISINTEGRATING 4 MG TAB PO PRN ×2 (21:43→22:08)
[2018-01-20] MEDS ORDERED: HYDROCODONE/APAP 5/325 TAB PO PRN (22:08)
--- NOTE | 2018-01-20 22:08 | PDGENHP ---
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 His first memory was being transported to the [facility] ED. He complains of mild headache and right knee pain. He denies nausea, emesis, visual disturbances. He sustained lacerations to his face and a head CT showed a small right subdural hematoma and multiple nasal fractures. He takes 81 mg ASA/day. Neurosurgery and Hospital Medicine were consulted initially and I recommended he be admitted to the Trauma Service as he meets criteria for limited plus activation. History Information - Allergies/Home Medication List Allergies/Adverse Reactions: No Known Allergies Allergy (Verified 01/20/18 20:38) Home Medications: Albuterol [Proventil Inhaler HFA (*)] 1 - 2 puffs IH Q4H PRN 07/09/16 [Last Taken Unknown] Budesonide/Formoterol 160/4.5 [Symbicort 160-4.5 Mcg Inh (*)] 2 puffs IH BID [Last Taken 01/20/18 08:00] Losartan Potassium [Cozaar] 100 mg PO DAILY 07/09/16 [Last Taken 01/20/18 08:00] Simvastatin [Zocor] 40 mg PO DAILY 07/09/16 [Last Taken 01/20/18 08:00] I have personally reviewed and updated: family history, medical history, social history, surgical history - Past Medical History coronary artery disease (minor athersclerosis with normal EF via cardiac cath 2017), COPD, degenerative disc disease, hypertension, hyperlipidemia - Family History Positive for: non-pertinent - Social History Smoking Status: Former smoker Tobacco Use: Pipe Alcohol Use: Other (endorses drinking alcohol tonight, when asked how much he replied "just the right amount") Drug Use: None 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 Review of Systems Review of Systems: Constitutional: Reports: recent injury EENMT: Reports: nose pain Cardiac: Reports: no symptoms, other (no prior hx syncope/arrythmia) Respiratory: Reports: wheezing Gastrointestinal: Reports: no symptoms Genitourinary: Reports: no symptoms Muscolosketal: Reports: back pain (chronic), neck pain (not currently) Neurological: Reports: headache Hematologic/Lymphatic: Reports: easy bruising Physical Exam Physical Exam: Temp Pulse Resp BP Pulse Ox 37.1 C 98 16 120/80 94 01/20/18 20:39 01/20/18 20:39 01/20/18 20:39 01/20/18 20:39 01/20/18 20:39 Constitutional: uncomfortable Eyes: PERRL, anicteric sclera, EOMI, other (TMs clear) Ears, Nose, Mouth, Throat: moist mucous membranes, ears appear normal (TMs clear ) Cardiovascular: regular rate and rhythym Respiratory: no respiratory distress, no rales or rhonchi, reduced air movement Gastrointestinal: normoactive bowel sounds, soft, non-tender abdomen, distension Genitourinary: no bladder fullness Skin: warm Musculoskeletal: other (abrasion right knee with tenderness) Neurologic: AAOx3, sensation intact bilaterally, other (reflexes symmetrical/ gait testing not performed) Psychiatric: interacting appropriately Lab Data & Imaging Review 01/20/18 21:03 01/20/18 21:03 WBC 6.96 10^3/uL (3.80-9.50) 01/20/18 21:03 RBC 4.03 10^6/uL (4.40-6.38) L 01/20/18 21:03 Hgb 13.4 g/dL (13.7-17.5) L 01/20/18 21:03 POC Hgb 13.9 gm/dL (13.7-17.5) 01/20/18 21:09 Hct 40.3 % (40.0-51.0) 01/20/18 21:03 POC Hct 41 % (40-51) 01/20/18 21:09 MCV 100.0 fL (81.5-99.8) H 01/20/18 21:03 MCH 33.3 pg (27.9-34.1) 01/20/18 21:03 MCHC 33.3 g/dL (32.4-36.7) 01/20/18 21:03 RDW 12.8 % (11.5-15.2) 01/20/18 21:03 Plt Count 250 10^3/uL (150-400) 01/20/18 21:03 MPV 9.3 fL (8.7-11.7) 01/20/18 21:03 Neut % (Auto) 51.6 % (39.3-74.2) 01/20/18 21:03 Lymph % (Auto) 29.9 % (15.0-45.0) 01/20/18 21:03 [place] % (Auto) 11.9 % (4.5-13.0) 01/20/18 21:03 Eos % (Auto) 5.2 % (0.6-7.6) 01/20/18 21:03 Baso % (Auto) 0.7 % (0.3-1.7) 01/20/18 21:03 Nucleat RBC Rel Count 0.0 % (0.0-0.2) 01/20/18 21:03 Absolute Neuts (auto) 3.59 10^3/uL (1.70-6.50) 01/20/18 21:03 Absolute Lymphs (auto) 2.08 10^3/uL (1.00-3.00) 01/20/18 21:03 Absolute Monos (auto) 0.83 10^3/uL (0.30-0.80) H 01/20/18 21:03 Absolute Eos (auto) 0.36 10^3/uL (0.03-0.40) 01/20/18 21:03 Absolute Basos (auto) 0.05 10^3/uL (0.02-0.10) 01/20/18 21:03 Absolute Nucleated RBC 0.00 10^3/uL (0-0.01) 01/20/18 21:03 Immature Gran % 0.7 % (0.0-1.1) 01/20/18 21:03 Immature Gran # 0.05 10^3/uL (0.00-0.10) 01/20/18 21:03 POC Sodium 142 mEq/L (135-145) 01/20/18 21:09 Sodium 141 mEq/L (135-145) 01/20/18 21:03 POC Potassium 4.1 mEq/L (3.3-5.0) 01/20/18 21:09 Potassium 4.3 mEq/L (3.3-5.0) 01/20/18 21:03 POC Chloride 108 mEq/L (97-110) 01/20/18 21:09 Chloride 107 mEq/L (97-110) 01/20/18 21:03 Carbon Dioxide 21 mEq/l (22-31) L 01/20/18 21:03 Anion Gap 13 mEq/L (6-14) 01/20/18 21:03 POC BUN 16 mg/dL (7-23) 01/20/18 21:09 BUN 16 mg/dL (7-23) 01/20/18 21:03 Creatinine 0.9 mg/dL (0.7-1.3) 01/20/18 21:03 POC Creatinine 1.0 mg/dL (0.7-1.3) 01/20/18 21:09 Estimated GFR > 60 01/20/18 21:03 Glucose 94 mg/dL (70-100) 01/20/18 21:03 POC Glucose 91 mg/dL (70-100) 01/20/18 21:09 Calcium 9.5 mg/dL (8.5-10.4) 01/20/18 21:03 Magnesium 1.8 mg/dL (1.6-2.3) 01/20/18 21:03 Total Bilirubin 0.3 mg/dL (0.1-1.4) 01/20/18 21:03 AST 51 IU/L (17-59) 01/20/18 21:03 ALT 55 IU/L (21-72) 01/20/18 21:03 Alkaline Phosphatase 70 IU/L (38-126) 01/20/18 21:03 POC Troponin I 0.00 ng/mL (0.00-0.08) 01/20/18 21:08 Total Protein 7.8 g/dL (6.3-8.2) 01/20/18 21:03 Albumin 4.2 g/dL (3.5-5.0) 01/20/18 21:03 Visualized and Interpreted imaging results: Yes Interpretation: small subdural right frontal/multiple nasal fractures with mild septal deviation/no ICH, EDH EKG Interpretation: Positive for: normal sinsus rhythm EKG additional interpertation: mild prolongede QT Assessment & Plan Assessment: s/p unwitnessed fall with closed head injury, subdural hematoma multiple nasal bone fractures multiple facial lacerations hypertension hyperlipidemia COPD CAD w/out intervention or prior VT I suspect the cause of the injury is mechanical fall, though a syncopal episode cannot be entirely excluded Plan: Admit Trauma Service-ICU/Neurosurgery and Hospitalist consults C-spine CT CXR tetanus vaccination serial neurochecks laceration repair in the ED continue home meds/cardiac monitoring Tami Petty MD, FACS
[2018-01-20] MEDS ORDERED: SKIN ADHESIVE (DERMABOND) 1 EACH TP ONE (22:23)
[2018-01-20] MEDS ORDERED: ALBUTEROL HFA 200 PUFFS/8.5 GM MDI IH PRN (22:32)
[2018-01-20] MEDS ORDERED: TETANUS, DIPHTHERIA TOX (7YR+) 0.5 ML INJ IM ONE (22:33)
--- NOTE | 2018-01-20 23:09 | EDPHY ---
H & P Stated Complaint: Fall, lacerations ot face.thinks had Sz, no recollection. Time Seen by Provider: 01/20/18 20:46 HPI/ROS: CHIEF COMPLAINT: Facial injuries and possible loss of consciousness HISTORY OF PRESENT ILLNESS: Patient is a 72-year-old male with a history of hypertension, COPD and dyslipidemia here with his son after possible syncopal event and facial injury. Son states that he lives with his father and when he came home he found his father face down on the ground. At that time he was answering all questions appropriately was able to stand has been acting appropriately since. The patient states that the last thing he can remember is eating a meal around 6 o'clock. Denies any chest pain or shortness of breath and feeling dizzy or weak this afternoon. Does report a history of hypertension and coronary artery disease and did take his medication this afternoon when take a baby aspirin this morning. He denies any trouble speaking , swallowing, trouble with coordination or any numbness or weakness. He has no history of stroke or arrhythmia. He has never passed out. He has no history of seizures. He does think that he lost control of his bladder but denies any tongue biting. REVIEW OF SYSTEMS: Constitutional: No fever, no chills. Eyes: No discharge. ENT: No sore throat. Cardiovascular: No chest pain, no palpitations. Respiratory: No cough, no shortness of breath. Gastrointestinal: No abdominal pain, no vomiting. Genitourinary: No hematuria. Musculoskeletal: No back pain. Skin: No rashes. Multiple facial abrasions and lacerations Neurological: + headache. Source: Patient, Family Exam Limitations: No limitations - Personal History Current Tetanus/Diphtheria Vaccine: Unsure Current Tetanus Diphtheria and Acellular Pertussis (TDAP): Unsure - Medical/Surgical History Hx Asthma: No Hx Chronic Respiratory Disease: Yes Hx Diabetes: No Hx Cardiac Disease: Yes Hx Renal Disease: No Hx Cirrhosis: No Hx Alcoholism: No Hx HIV/AIDS: No Hx Splenectomy or Spleen Trauma: No Other PMH: HTN, cholesterol, Cardiac cath 2017-dalila Castellano, COPD - Social History Smoking Status: Former smoker - Physical Exam Exam: General Appearance: Alert and no distress. GCS 14 ENT: Normal dentition. No tonsillar exudate or swelling. Eyes: Pupils equal and round no injection. No hyphema. Extraocular muscles intact. Respiratory: Chest is nontender, lungs are clear to auscultation. Cardiac: regular rate and rhythm. No lower extremity edema Gastrointestinal: Abdomen is soft and nontender, no masses, bowel sounds normal. Musculoskeletal: Neck is supple and nontender. Extremities have full range of motion and are nontender without deformity Skin: No rashes. Multiple superficial abrasions to the forehead nose and chin. 1 cm stellate laceration of the bridge of nose and additionally 1 1 cm laceration at the tip of the nose. Neuro: Cranial nerves grossly intact. No nystagmus. Normal [id number] testing. No ulnar drift. Equal grasp bilateral hands. Ambulatory. Constitutional: Initial Vital Signs Temperature (C) 37.1 C 01/20/18 20:39 Heart Rate 98 01/20/18 20:39 Respiratory Rate 16 01/20/18 20:39 Blood Pressure 120/80 01/20/18 20:39 O2 Sat (%) 94 01/20/18 20:39 O2 Delivery Mode Room Air Allergies/Adverse Reactions: No Known Allergies Allergy (Verified 01/20/18 20:38) Home Medications: Medication Instructions Recorded Albuterol [Proventil Inhaler HFA 1 - 2 puffs IH Q4H PRN 07/09/16 (*)] Budesonide/Formoterol 160/4.5 2 puffs IH BID 07/09/16 [Symbicort 160-4.5 Mcg Inh (*)] Losartan Potassium [Cozaar] 100 mg PO DAILY 07/09/16 Simvastatin [Zocor] 40 mg PO DAILY 07/09/16 Aspirin [Aspirin 81mg (*)] 81 mg PO DAILY tab.chew 07/23/17 Metoprolol Succinate Xr [Toprol Xl 50 mg PO DAILY #30 tab 07/23/17 50 mg (*)] Medical Decision Making - Diagnostics Imaging Results: Imaging Impressions Head CT 01/20/18 20:59 Impression: 1. Small left frontal acute subdural hematoma. 2. No hydrocephalus or mass effect. 3. Cerebrovascular atherosclerosis. 4. No definite acute infarct. 5. Moderate microvascular ischemic gliosis. 6. Depressed, comminuted nasal bone fractures. 7. Large frontal scalp hematoma. Findings and recommendations discussed with emergency department physician senior court office assistant, Janes Winter PA-C at 2125 hours on January 20, 2018. Final report concurs with initial preliminary interpretation. Procedures: Procedure: Laceration repair. Verbal consent was obtained from the patient. The 2 nasal lacerations on the bridge of the nose and tip of the nose was anesthetized in the usual fashion. The wound was irrigated, draped and explored. There were no deep structures involved. The wound was repaired with 6.0 nylon and Dermabond. The wound repair was well approximated. The procedure was performed by myself. ED Course/Re-evaluation: 72-year-old male here with loss consciousness and ground level fall resulting in the subdural hematoma. He is neurologically intact with no focal deficits. EKG reveals slightly prolonged QTC but troponin 0.00 Trish hemodynamically stable with blood pressure of 120/80. Discussed the case with Dr. Jason on- call for Neurosurgery who recommends admit to the ICU repeat CT scan in the morning. I did discuss the possibility of giving platelets of as the patient is on aspirin and she would prefer the patient not receive platelets for this. Additionally discussed the case Dr. Petty agrees to see the patient for trauma evaluation. He agrees to the plan for admission to ICU. Laceration repair as detailed below. Patient remained hemodynamically stable in the emergency room. Differential Diagnosis: Arrhythmia, ACS, subarachnoid hemorrhage, CVA, seizure, intoxication - Data Points Laboratory Results: Laboratory Results 01/20/18 21:03 01/20/18 21:03 01/20/18 01/20/18 01/20/18 21:09 21:08 21:03 WBC RBC Hgb POC Hgb 13.9 gm/dL gm/dL (13.7-17.5) Hct POC Hct 41 % % (40-51) MCV MCH MCHC RDW Plt Count MPV Neut % (Auto) Lymph % (Auto) Benson % (Auto) Eos % (Auto) Baso % (Auto) Nucleat RBC Rel Count Absolute Neuts (auto) Absolute Lymphs (auto) Absolute Monos (auto) Absolute Eos (auto) Absolute Basos (auto) Absolute Nucleated RBC Immature Gran % Immature Gran # POC Sodium 142 mEq/L mEq/L (135-145) Sodium 141 mEq/L mEq/L (135-145) POC Potassium 4.1 mEq/L mEq/L (3.3-5.0) Potassium 4.3 mEq/L mEq/L (3.3-5.0) POC Chloride 108 mEq/L mEq/L (97-110) Chloride 107 mEq/L mEq/L (97-110) Carbon Dioxide 21 mEq/l L mEq/l (22-31) Anion Gap 13 mEq/L mEq/L (6-14) POC BUN 16 mg/dL mg/dL (7-23) BUN 16 mg/dL mg/dL (7-23) Creatinine 0.9 mg/dL mg/dL (0.7-1.3) POC Creatinine 1.0 mg/dL mg/dL (0.7-1.3) Estimated GFR > 60 Glucose 94 mg/dL mg/dL (70-100) POC Glucose 91 mg/dL mg/dL (70-100) Calcium 9.5 mg/dL mg/dL (8.5-10.4) Magnesium 1.8 mg/dL mg/dL (1.6-2.3) Total Bilirubin 0.3 mg/dL mg/dL (0.1-1.4) AST 51 IU/L IU/L (17-59) ALT 55 IU/L IU/L (21-72) Alkaline Phosphatase 70 IU/L IU/L (38-126) POC Troponin I 0.00 ng/mL ng/mL (0.00-0.08) Total Protein 7.8 g/dL g/dL (6.3-8.2) Albumin 4.2 g/dL g/dL (3.5-5.0) 01/20/18 21:03 WBC 6.96 10^3/uL 10^3/uL (3.80-9.50) RBC 4.03 10^6/uL L 10^6/uL (4.40-6.38) Hgb 13.4 g/dL L g/dL (13.7-17.5) POC Hgb Hct 40.3 % % (40.0-51.0) POC Hct MCV 100.0 fL H fL (81.5-99.8) MCH 33.3 pg pg (27.9-34.1) MCHC 33.3 g/dL g/dL (32.4-36.7) RDW 12.8 % % (11.5-15.2) Plt Count 250 10^3/uL 10^3/uL (150-400) MPV 9.3 fL fL (8.7-11.7) Neut % (Auto) 51.6 % % (39.3-74.2) Lymph % (Auto) 29.9 % % (15.0-45.0) Benson % (Auto) 11.9 % % (4.5-13.0) Eos % (Auto) 5.2 % % (0.6-7.6) Baso % (Auto) 0.7 % % (0.3-1.7) Nucleat RBC Rel Count 0.0 % % (0.0-0.2) Absolute Neuts (auto) 3.59 10^3/uL 10^3/uL (1.70-6.50) Absolute Lymphs (auto) 2.08 10^3/uL 10^3/uL (1.00-3.00) Absolute Monos (auto) 0.83 10^3/uL H 10^3/uL (0.30-0.80) Absolute Eos (auto) 0.36 10^3/uL 10^3/uL (0.03-0.40) Absolute Basos (auto) 0.05 10^3/uL 10^3/uL (0.02-0.10) Absolute Nucleated RBC 0.00 10^3/uL 10^3/uL (0-0.01) Immature Gran % 0.7 % % (0.0-1.1) Immature Gran # 0.05 10^3/uL 10^3/uL (0.00-0.10) POC Sodium Sodium POC Potassium Potassium POC Chloride Chloride Carbon Dioxide Anion Gap POC BUN BUN Creatinine POC Creatinine Estimated GFR Glucose POC Glucose Calcium Magnesium Total Bilirubin AST ALT Alkaline Phosphatase POC Troponin I Total Protein Albumin Medications Given: Discontinued Medications Tetracaine/Epinephrine/Lidocaine (Let Gel Topical) 1 ea TP EDNOW ONE Stop: 01/20/18 21:01 Last Admin: 01/20/18 21:15 Dose: 1 ea Point of Care Test Results: Chemistry 01/20/18 01/20/18 21:09 21:08 POC Sodium 142 mEq/L mEq/L (135-145) POC Potassium 4.1 mEq/L mEq/L (3.3-5.0) POC Chloride 108 mEq/L mEq/L (97-110) POC BUN 16 mg/dL mg/dL (7-23) POC Creatinine 1.0 mg/dL mg/dL (0.7-1.3) POC Glucose 91 mg/dL mg/dL (70-100) POC Troponin I 0.00 ng/mL ng/mL (0.00-0.08) ISTAT H&H 01/20/18 21:09 POC Hgb 13.9 gm/dL gm/dL (13.7-17.5) POC Hct 41 % % (40-51)
[2018-01-21] MEDS: BUDESONIDE/FORMOTEROL 160/4.5 60 PUFFS/MDI IH SCH ×2 (00:01→07:14)
[2018-01-21 07:14] VITALS: BP 156/89
--- NOTE | 2018-01-21 08:20 | NEUSURGPN ---
Assessment/Plan: Assessment: 72 yr old M s/p GLF with small frontal SDH Please see full dictated consult when available Plan: -CT shows small left frontal SDH, repeat CT stable -CT cervical-no acute findings, known DDD at C6-7 which he has been seen by Dr Peoples for -Neuro intact -Ok to continue ASA per Dr Srinivasan -Red flag symptoms discussed and patient will call with any worsening symptoms -Ok to dc home from neurosurgery standpoint, will have patient fu in office in 3 -4 weeks -Patient seen and examined by neurosurgical services today at 0815 Please call us with any questions/concerns Subjective: Sitting in chair, doing great Objective: AxO x4 PERRLA EOMI CN 2-12 grossly intact MAEx4 5/5 BUE, BLE Sensation intact to light touch BLE Facial abrasions Neuro Check Frequency: per routine Urinary Catheter in Place: No - Physician Discussed Patient with : [facility] Neurosurgery Physical Exam - Vitals, I&O, Labs I and O 01/20/18 01/21/18 01/22/18 05:59 05:59 05:59 Intake Total 200 Balance 200 Weight 94.3 kg Intake: Oral (ml) 200 IV Infused (ml) 0 Other: Intake Quantity Yes Sufficient Number of Voids Toilet 1 Vital Signs Temp Pulse Resp BP Pulse Ox 37.0 C 99 15 156/89 H 93 01/21/18 07:13 01/21/18 07:13 01/21/18 07:13 01/21/18 07:13 01/21/18 07:13 ICD10 Worksheet Patient Problems: Problems Problem Status Onset Abnormal EKG Acute Bronchitis Acute Chest pain Acute Dyspnea Acute Hypertension Acute Tachycardia Acute
[2018-01-21] MEDS: BACITRACIN ZINC 14.2 GM OINTTUBE TP SCH ×2 (08:56)
[2018-01-21] MEDS ORDERED: LOSARTAN POTASSIUM 50 MG TAB PO SCH (09:00)
[2018-01-21] MEDS ORDERED: ASPIRIN 81 MG CHEWABLE TAB PO SCH (09:00)
[2018-01-21] MEDS ORDERED: ATORVASTATIN CALCIUM 20 MG TAB PO SCH (09:00)
[2018-01-21] MEDS ORDERED: METOPROLOL SUCCINATE XR 50 MG TAB PO SCH (09:00)
--- NOTE | 2018-01-21 09:28 | GCON ---
DATE OF CONSULTATION: 01/21/2018 CHIEF COMPLAINT: Subdural hematoma. 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 The patient states he had a positive loss of consciousness. The first thing he remembers was being in the emergency department. The patient has a mild headache and denies any other neurological deficits. The patient has some lacerations to his face and is currently on [address] of the head showed a small frontal subdural hematoma. Repeat imaging was stable. ALLERGIES: No known allergies. HOME MEDICATIONS: Albuterol, Symbicort, losartan, potassium, simvastatin, aspirin 81 mg daily. REVIEW OF SYSTEMS: A 10-point review of systems was performed and negative, aside from what was mentioned in the HPI. PAST MEDICAL HISTORY: Coronary artery disease, COPD, degenerative disk disease , hypertension, hyperlipidemia. SOCIAL HISTORY: The patient is a former pipe smoker. He does drink alcohol. Denies any illicit drug use. FAMILY HISTORY: Family history is reviewed and noncontributory to the current situation. DIAGNOSTICS: Laboratory results: White blood cell count 6.96, hemoglobin 13.4 , hematocrit 40.3, platelets are 250. Sodium 142, potassium 4.3, BUN 16, creatinine 0.9, and glucose 94. CT of the head performed without contrast on January 20, 2018, at 2059, demonstrates a small left frontal acute subdural hematoma with no hydrocephalus or mass effect. Moderate microvascular ischemic gliosis, depressed comminuted nasal bone fractures, and a large frontal scalp hematoma. CT of the cervical spine performed on January 20, 2018, at 2213, demonstrates no definite fracture. Moderate degenerative disease and facet arthropathy, left worse than right, most pronounced at C6-7 and C7-T1. CT of the head performed without contrast on January 21, 2018, at 0600, demonstrates a stable small left frontal subdural hematoma without any changes. EXAM: VITAL SIGNS: Blood pressure is 156/89, heart rate is 99, respiratory rate is 15, oxygen saturation is 93% on room air, temperature is 37.0 degrees Celsius. HEENT: Head is normocephalic. The patient has facial lacerations with some sutures in place and nasal swelling. EOMI is intact. Full visual field is without complication. RESPIRATORY AND CARDIAC: Deferred. ABDOMEN, GENITOURINARY, AND RECTAL: Deferred. NEUROLOGIC: The patient is awake and alert, oriented to self, location, date, time, and situation. Memory is intact to immediate past and current events. Cranial nerves 2-12 are grossly intact. Motor: Patient has 5/5 strength in all upper and lower extremities, including deltoids, biceps, triceps, brachioradialis intrinsics, wrist flexions intrinsics , quadriceps hamstrings, plantar flexion, dorsiflexion, and EHL testing. Sensation is grossly intact to light touch in all dermatomal distributions in bilateral lower extremities. Reflexes: Biceps, triceps, brachioradialis, knee reflex, and ankle jerks are 2+. Babinski's is negative. Greene's is negative. There is no evidence of clonus. 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 The patient underwent a CT of the head, which showed a small left frontal subdural hematoma. Repeat imaging is stable. CT of cervical spine without evidence of fracture, with some degenerative disk disease at C6-7 and C7-T1. Patient states he has seen Dr. Valentín Peoples for his cervical degenerative disk disease. It is okay for the patient to be discharged home from a neurosurgical standpoint. It is okay for him to continue his daily aspirin of 81 mg. Red flag symptoms were reviewed with the patient, and he was instructed to call our office with any questions or concerns or worsening findings, or to go to the emergency room. The patient will follow up in the office with us in 2-3 weeks. The patient was seen and examined by Neurosurgical Services at the bedside in the intensive care unit 0815 on January 21, 2018. Please call Neurosurgery with any questions or concerns. /[id number]/[facility] I have seen and evaluated the patient. He has a tiny extra-axial bleed in the left frontal region without any mass effect or shift and it is not even in contact with the cortical surface. He is neurologically intact. I gave him the option of following up with us in a few weeks or not. Our office will check in with him to see if he wants an appointment or not. Zarina RIVERA
--- NOTE | 2018-01-21 09:31 | ASMTCMCOM ---
CM Note CM Note Notes: 72yo male admitted after a fall: Syncope, R SDH, Nasal Fx, Facial lac. He has a Hx of CAD, COPD, DDD, HTN, HLD, former pipe smoker. He lives with his in [place]. PT recommending home with no needs. Date Signed: 01/21/2018 09:31 AM Electronically Signed By:Yola Cooper LCSW
--- NOTE | 2018-01-21 09:56 | TRAUMAPN ---
Trauma Progress Note Assessment/Plan: 72yo M s/p mech fall c small frontal SDH, facial lac (repaired in ED), facial abrasions TERTIRAY EXAM Neuro: AO, non-focal, repeat CT head this AM is stable. NSG has seen the patient. They are OK with him continuing ASA Pulm: SARAH CV: HDS Abdomen: soft, ND, NT. Reg diet which is tolerated Renal: voiding Heme: Stable, ok for ASA Id: afebrile, bacitracin to facial abrasions Ortho: nasal fx, non-displaced Dispo: dc Subjective: feels well, wants to go home Objective: Vital Signs Temp Pulse Resp BP Pulse Ox 37.0 C 99 15 156/89 H 93 01/21/18 07:13 01/21/18 07:13 01/21/18 07:13 01/21/18 07:13 01/21/18 07:13 01/20/18 01/21/18 01/22/18 05:59 05:59 05:59 Intake Total 200 Balance 200
--- NOTE | 2018-01-21 09:59 | PDDCSUM ---
Discharge Summary Discharge Summary: DISCHARGE SUMMARY Date of Admission January 20 Date of Discharge January 21 DISCHARGE DIAGNOSES -mechanical fall with the following injuries -small subdural hematoma -nasal fracture -no laceration -facial abrasions HOSPITAL COURSE The patient was admitted from the ED after sustaining a mechanical fall and had the above injuries. He was monitored overnight and was stable. He had consultation from neurosurgery who felt he was safe for dc. They were discharged home in stable condition on the morning of the DISCHARGE MEDICATIONS none DISPOSITION home FOLLOW UP Follow up with trauma as needed
== END 2018-01-21 10:10 | disposition home or self-care (01) ==
LOC: INTOOBSV 21:43 → F2N 23:15
PROVIDERS: ADMIT Student in an Organized Health Care Education/Training Program; ATTEND Surgery
PROC: 0HQ1XZZ Repair Face Skin, External Approach (ICD-10-PCS; principal; 2018-01-20)
DX: S06.5X1A Traumatic subdural hemorrhage with loss of consciousness of 30 minutes or less, initial encounter (principal); S02.2XXA Fracture of nasal bones, initial encounter for closed fracture; S01.21XA Laceration without foreign body of nose, initial encounter; S00.03XA Contusion of scalp, initial encounter; S00.91XA Abrasion of unspecified part of head, initial encounter; R40.2412 Glasgow coma scale score 13-15, at arrival to emergency department; W19.XXXA Unspecified fall, initial encounter; Y93.01 Activity, walking, marching and hiking; Y92.017 Garden or yard in single-family (private) house as the place of occurrence of the external cause; Y99.8 Other external cause status; I10 Essential (primary) hypertension; J44.9 Chronic obstructive pulmonary disease, unspecified; E78.5 Hyperlipidemia, unspecified; I25.10 Atherosclerotic heart disease of native coronary artery without angina pectoris; M50.30 Other cervical disc degeneration, unspecified cervical region; Z79.82 Long term (current) use of aspirin; Z87.891 Personal history of nicotine dependence; Z23 Encounter for immunization
CPT/HCPCS: 12011; 70450; 71045; 72125; 90471; 90686; 93005; 97161; 99285; G0008; G0378; G8978; G8979; G8980; 82435-PO; 82565-PO; 82947-PO; 84132-PO; 84295-PO; 84484-PO; 84520-PO; 85014-PO